=== PATIENT | male | born 1965 | race Two or more races ===

== ENCOUNTER 2021-02-02 12:27 | Outpatient (REF) | payer MEDICARE, MEDICAID, SELFPAY ==
[2021-02-02 14:00] LABS: Blood Urea Nitrogen 9 mg/dL (9-16); Estimated Glomerular Filt Rate > 60
== END 2021-02-02 12:28 | disposition home or self-care (01) ==
LOC: HO.LAB 12:27
PROVIDERS: PCP Internal Medicine; Visit Provider Internal Medicine
DX: R10.12 Left upper quadrant pain (principal)
CPT/HCPCS: 36415; 82565; 84520

== ENCOUNTER 2021-02-05 12:33 | Outpatient (REF) | payer MEDICARE, MEDICAID, SELFPAY ==
--- NOTE | ~2021-02-05 | CT_ITS ---
EXAMINATION: CT ABDOMEN WITH CONTRAST CLINICAL INFORMATION: Left upper quadrant pain COMPARISON: CT from 06/21/2009 TECHNIQUE: Contiguous axial thin section helical images of the abdomen were performed following the administration of oral contrast and 100 mL of Omnipaque 350 intravenous contrast. The data set was reformatted in the coronal and sagittal planes and reviewed on an independent workstation. This CT examination was performed using dose optimization techniques as appropriate, variously including the following: *Automated exposure control *Adjustment of mA and/or kV according to patient size (this includes techniques or standardized protocols for targeted exams where dose is matched to indication/reason for exam; i.e. extremities or head) *Use of iterative reconstruction technique DLP: 735 mGy-cm FINDINGS: LUNG BASES: The lung bases are clear. The visualized cardiac structures are unremarkable. LIVER, GALLBLADDER, AND BILIARY TREE: The liver is normal in size, shape, and attenuation. No focal hepatic lesion. Status post cholecystectomy. There is intrahepatic and extrahepatic biliary ductal dilatation noted. No ductal filling defects are seen. PANCREAS: Mild fatty atrophy of the pancreas with no focal pancreatic lesion. No pancreatic ductal dilatation. SPLEEN: Normal. ADRENAL GLANDS AND KIDNEYS: Normal appearance of the adrenal glands. Kidneys are normal in size, shape, and attenuation. Mild cortical thinning at the lower to midpole of the right kidney. No hydronephrosis or nephrolithiasis. Symmetric nephrograms bilaterally. There is symmetric excretion. There is a right lower pole 1.7 cm cyst. No suspicious renal mass. BOWEL LOOPS: The stomach is unremarkable. Normal caliber small bowel. There is no obstruction. Normal appendix is partially visualized. No colonic wall thickening or acute inflammatory change. Mild colonic stool burden. No free air or free fluid. LYMPH NODES: Normal. VASCULAR: Normal caliber aorta with mild atherosclerotic calcification. Circumaortic left renal vein. BONES: No acute or suspicious osseous abnormality. Mild degenerative changes of the spine. CT/CT abdomen w con IMPRESSION: No suspicious findings to account for patient's pain. There is a right lower pole renal cyst. Otherwise unremarkable appearance of the kidneys. Status post cholecystectomy. Nonspecific intrahepatic and extrahepatic biliary ductal dilatation. This can be seen in the postcholecystectomy state.
== END 2021-02-05 12:34 | disposition home or self-care (01) ==
LOC: HO.CT 12:33
PROVIDERS: PCP Internal Medicine; Visit Provider Internal Medicine
DX: R10.12 Left upper quadrant pain (principal)
CPT/HCPCS: 74160; Q9967

== ENCOUNTER 2021-03-06 12:26 | Emergency (ER) | payer MEDICARE, MEDICAID, SELFPAY ==
[2021-03-06 12:38] VITALS: BP 132/94; PULSE 99; RESP 18; TEMP 37; O2SAT 97; BMI 37.3
--- NOTE | 2021-03-06 15:59 | ED.ABDPAIN ---
HPI - Abdominal Pain General Chief Complaint: Abdominal Pain Stated Complaint: VOMITING DIARRHEA EAR PAIN ABD PAIN Time Seen by Provider: 03/06/21 15:13 Source: patient Mode of arrival: ambulatory Limitations: no limitations History of Present Illness HPI narrative: 55 y/o male with history of depression, anxiety, gastritis, H.pylori in the past who presents with diffuse lower abdominal pain, nausea, vomiting and diarrhea for the last 4 days after he ingested boiled octopus that he made at home. He reports the day after he ate it he had profuse vomiting and diarrhea. He denies blood in his stool or vomitus. No fever or chills. He has lower abdominal discomfort that is cramping in nature, comes and goes and is worse before BM's. He also has some discomfort/soreness when he vomits. No pain at rest. MD elicited complaint: abdominal pain and other (vomiting and diarrhea ) Onset (ago): day(s) (4) Pain Consistency: intermittent Location: RLQ and LLQ Severity: moderate Quality: cramping Radiation: none Migration to: no migration Exacerbating factors: nothing Relieving factors: nothing Associated symptoms: nausea, vomiting and diarrhea Related Data Home Medications Medication Instructions Recorded Confirmed buprenorphine 8 mg-naloxone 2 mg 10 mg SUBLINGUAL BID 01/05/21 01/05/21 sublingual film clonazepam 1 mg tablet 0 mg PO 01/05/21 01/05/21 duloxetine 30 mg capsule,delayed 30 mg PO DAILY 01/05/21 01/05/21 release hydroxyzine HCl 50 mg tablet 50 mg PO TID 01/05/21 01/05/21 temazepam 15 mg capsule 15 mg PO BEDTIME PRN 01/05/21 01/05/21 Previous Rx's Medication Instructions Recorded ondansetron 4 mg PO Q8H PRN #10 tab 03/06/21 Allergies Allergy/AdvReac Type Severity Reaction Status Date / Time No Known Allergies Allergy Verified 03/06/21 12:42 Review of Systems Review of Systems Constitutional: No Fever, No Chills Cardiovascular: No Chest Pain, No SOB Respiratory: No Cough, No Sputum Gastrointestinal: + Nausea, + Vomiting, + Diarrhea, + abdominal Pain, No Hematochezia, No Melena Genitourinary: No Dysuria, No Urinary Frequency, No Hematuria Musculoskeletal: No joint pain, No Myalgias Skin: No Skin Lesions, No rash Neuro: No Weakness, No Numbness, No Dizziness, No Headache Heme/Lymph: No Bruising, No Lymphadenopathy Endocrine: No Polyuria, No Polydipsia Physical Exam Vital Signs: Vital Signs: Last Vital Signs Temp 98.0 F 03/06/21 16:00 Pulse 77 03/06/21 16:00 Resp 18 03/06/21 12:38 BP 139/82 03/06/21 16:00 Pulse Ox 98 03/06/21 16:00 Body Mass Index 37.3 Appearance: Alert. Oriented X3. No acute distress. Eyes: Pupils equal, round and reactive to light. ENT: Pharynx normal. Neck: Normal inspection. Neck supple. CVS: Normal heart rate and rhythm. Pulses normal. Respiratory: No respiratory distress. Breath sounds normal. Abdomen: Soft with mild lower abdominal tenderness throughout to deep palpation without rebound or guarding. +BS x4 Skin: Skin warm and dry. Normal skin color. Normal skin turgor. No rashes. Extremities: No lower extremity edema. Neuro: Oriented X 3. No motor deficit. No sensory deficit. Course Course Course Narrative: 55 y/o male presenting with N/V/D for the last 4 days after eating octopus on Good Friday. No blood in stool or vomitus. Doubt bacterial infection. Likely gastroenteritis due to food bourne illness. He appears well on exam with no significant abdominal tenderness. Afebrile without tachycardia. Will get labs, hydrate and give IV zofran and reassess. Reevaluation(s) Reevaluation #1: Labs show normal WBC. He is asking for omar zenon and tolerating it well. No vomiting or diarrhea in the 5 hours the patient has been in the ER. Labs needed to be resent due to hemolysis. Giving additional IVF now and crackers. He appears well. If labs ok will plan for d/c home with zofran. MDM - Abdominal Pain Lab Data Result diagrams: 03/06/21 16:15 03/06/21 16:15 Labs: Lab Results 03/06/21 03/06/21 Range/Units 16:15 16:16 WBC 7.0 (4.8-10.8) X10*3/uL RBC 4.61 (4.60-5.80) X10*6/uL Hgb 13.3 L (14.0-18.0) g/dl Hct 39.3 L (42-52) % MCV 85.2 (80-98) fL MCH 28.9 (27.0-33.0) pg MCHC 33.8 (31.0-36.0) g/dl RDW 13.2 (11.0-16.0) % Plt Count 180 (160-400) X10*3/uL MPV 9.4 (9.4-12.4) fL Immature Gran % (Auto) 0.1 (0.0-0.4) % Neut % (Auto) 56.7 (45-73) % Lymph % (Auto) 32.8 (20-40) % Thurston % (Auto) 8.7 (2-11) % Eos % (Auto) 1.4 (0-4) % Baso % (Auto) 0.3 (0-2) % Lymph # (Auto) 2.3 (1.2-4.9) X10*3/uL Thurston # (Auto) 0.6 (0.1-1.2) X10*3/uL Eos # (Auto) 0.1 (0.0-0.4) X10*3/uL Baso # (Auto) 0.0 (0.0-0.2) X10*3/uL Abs Immat Gran (auto) 0.01 (0.00-0.03) X10*3/uL Absolute Neuts (auto) 4.0 (2.0-8.3) X10*3/uL Absolute Nucleated RBC 0.000 (0.0-0.012) X10*3/uL Nucleated RBC % (auto) 0.0 (0.0-0.2) /100WBC Coronavirus (PCR) NEGATIVE (Negative) Influenza Type A (PCR) NEGATIVE (Negative) Influenza Type B (PCR) NEGATIVE (Negative) RSV RNA Qual (PCR) NEGATIVE (Negative) Discharge Plan Discharge Clinical Impression: Gastroenteritis Patient Disposition: Home, Self-Care Instructions: Gastroenteritis (ED), Acute Nausea and Vomiting (ED) Additional Instructions: Your lab workup today was unremarkable. Rest and stay hydrated. Drink plenty of water. Stick to a bland diet while you are not feeling well. Follow up with your doctor this week. If you have recurrent persistent vomiting and diarrhea, worsening abdominal pain, fevers or blood in your stool come back to the ER for further evaluation. Prescriptions: New ondansetron 4 mg tablet,disintegrating 4 mg PO Q8H PRN (Reason: nausea and vomiting) Qty: 10 RF: 0 No Action duloxetine 30 mg capsule,delayed release(DR/EC) 30 mg PO DAILY RF: 0 temazepam 15 mg capsule 15 mg PO BEDTIME PRNRF: 0 hydroxyzine HCl 50 mg tablet 50 mg PO TID RF: 0 buprenorphine-naloxone 8-2 mg film 10 mg sublingual BID RF: 0 clonazepam 1 mg tablet 0 mg PO RF: 0 PMFSH Past Medical History Medical History History of inguinal hernia History of umbilical hernia Hx of gallstones Obesity Surgical History History of cholecystectomy History of inguinal hernia repair Family History Family History Mother Pre-diabetes Hypertension Father No problems noted. Family/Other Hypertension Social History Social History Alcohol intake: never Smoking Status: Never smoker Smoked in Last 30 Days: No Use of substances other than those prescribed or required for medical reasons: No Advance Directives: Yes Advance Directives Information Provided: Yes Advance Directives on File: No
[2021-03-06 16:00] VITALS: BP 139/82; PULSE 77; TEMP 36.7; O2SAT 98
[2021-03-06] MEDS: 0.9 % Sodium Chloride 1,000 ML 999 ML IVCONT ×2 (16:03→18:24)
[2021-03-06] MEDS: ondansetron HCL 4 MG/2 ML VIAL IVPUSH (16:03)
--- NOTE | 2021-03-06 16:09 | PC.NURSE ---
iv inserted, labs drawn, covid swab performed, pt medicated per order, vss, will continue to monitor.
[2021-03-06 16:24] LABS: MANUAL DIFF FLAG NO
[2021-03-06 16:26] LABS: Basophils Percent Auto 0.3 % (0-2); Eosinophils Absolute Auto 0.1 X10*3/uL (0.0-0.4); Eosinophils Percent Auto 1.4 % (0-4); Hematocrit 39.3 % (42-52); Hemoglobin 13.3 g/dl (14.0-18.0); Imm Gran Abs Auto 0.01 X10*3/uL (0.00-0.03); Imm Gran Pct Auto 0.1 % (0.0-0.4); Lymphocytes Absolute Auto 2.3 X10*3/uL (1.2-4.9); Lymphocytes Percent Auto 32.8 % (20-40); Mean Corpuscular HGB Conc 33.8 g/dl (31.0-36.0); Mean Corpuscular Hemoglobin 28.9 pg (27.0-33.0); Mean Corpuscular Volume 85.2 fL (80-98); Mean Platelet Volume 9.4 fL (9.4-12.4); Monocytes Absolute Auto 0.6 X10*3/uL (0.1-1.2); Monocytes Percent Auto 8.7 % (2-11); Neutrophils Percent Auto 56.7 % (45-73); Platelet Count 180 X10*3/uL (160-400); Red Blood Count 4.61 X10*6/uL (4.60-5.80); Red Cell Distribution Width 13.2 % (11.0-16.0)
[2021-03-06 17:04] LABS: Influenza A PCR NEGATIVE (Negative); Influenza B PCR NEGATIVE (Negative); Resp Syncy Virus RNA Qual PCR NEGATIVE (Negative); SARS COV2 PCR INHOUSE NEGATIVE (Negative)
[2021-03-06 18:04] LABS: Glucose Urine UA NEG (NEG); Leukocyte Esterase Urine NEG (NEG); Nitrite Urine NEG (NEG); Specific Gravity - Urine 1.015 (1.005-1.025); Urine Blood 1+ (NEG); Urine Ketones NEG (NEG); Urine Protein NEG (NEG-TRACE)
[2021-03-06 18:07] LABS: Appearance Urine CLEAR; Color Urine YELLOW
[2021-03-06 18:11] LABS: Bacteria Urine TRACE /LPF; Renal Epithelial Cells Urine TRACE /LPF; Squamous Epithelial Cell Urine TRACE /LPF; WBC Urine 0-2 /HPF (0-4)
[2021-03-06 18:24] VITALS: BP 115/75; PULSE 79; RESP 18; TEMP 36.9; O2SAT 96
--- NOTE | 2021-03-06 18:24 | PC.NURSE ---
patient a&ox3, vss, ivf started per order, pt currently watching tv, will continue to monitor.
[2021-03-06 18:26] LABS: Alanine Aminotransferase 35 U/L (0-40); Albumin Level 3.8 g/dL (3.5-5.0); Alkaline Phosphatase 148 U/L (39-117); Anion Gap 11 (12-20); Aspartate Amino Transferase 21 U/L (5-37); Bilirubin Direct 0.2 mg/dL (0.0-0.5); Bilirubin Total 0.6 mg/dL (0.0-1.0); Blood Urea Nitrogen 11 mg/dL (9-16); Calcium 8.6 mg/dL (8.4-10.2); Carbon Dioxide 25 mmol/L (22-29); Chloride 107 mmol/L (96-108); Creatinine Clr Calc Pharmacy 129.3; Estimated Glomerular Filt Rate > 60; Glucose Random 100 mg/dL (60-115); Lipase 55 U/L (8-78); Potassium 3.9 mmol/L (3.3-5.1); Sodium 139 mmol/L (135-145); Total Protein 6.7 g/dL (6.5-8.0)
== END 2021-03-06 19:55 | disposition home or self-care (01) ==
PROVIDERS: Physician Assistant; Emergency Provider Emergency Medicine; PCP Internal Medicine
DX: K52.9 Noninfective gastroenteritis and colitis, unspecified (principal); R10.30 Lower abdominal pain, unspecified; Z20.822 Contact with and (suspected) exposure to COVID-19; Z79.899 Other long term (current) drug therapy
CPT/HCPCS: 0241U; 36415; 80048; 80076; 81001; 83690; 83735; 85025; 96365; 96375; 99284; J2405

== ENCOUNTER 2021-09-12 12:30 | Emergency (ER) | payer MEDICARE, MEDICAID, SELFPAY ==
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
[2021-09-12 14:20] VITALS: BP 135/81; PULSE 80; RESP 18; TEMP 36.6; O2SAT 98; BMI 33.0
[2021-09-12] MEDS: Ibuprofen 600 MG TABLET PO (14:25)
== END 2021-09-12 14:38 | disposition home or self-care (01) ==
PROVIDERS: Emergency Provider Internal Medicine; PCP Internal Medicine
DX: S80.11XA Contusion of right lower leg, initial encounter (principal); S80.811A Abrasion, right lower leg, initial encounter; M54.50 Low back pain, unspecified; V09.20XA Pedestrian injured in traffic accident involving unspecified motor vehicles, initial encounter; Y93.55 Activity, bike riding; Y92.481 Parking lot as the place of occurrence of the external cause; Y99.9 Unspecified external cause status
CPT/HCPCS: 72100; 73590; 73610; 99283

== ENCOUNTER 2021-10-04 11:31 | Outpatient (REF) | payer MEDICARE, MEDICAID, SELFPAY ==
--- NOTE | ~2021-10-04 | XR_ITS ---
EXAMINATION: XR SHOULDER, RIGHT CLINICAL INFORMATION: Pain in shoulder. COMPARISON: None TECHNIQUE: 3 views. of the right shoulder. FINDINGS: The bones and soft tissues are normal. No fracture. Glenohumeral and acromioclavicular alignment is anatomic with normal joint space. No abnormal soft tissue calcifications. XR/XR shoulder RT min 2V IMPRESSION: Normal right shoulder.
--- NOTE | ~2021-10-04 | XR_ITS ---
EXAMINATION: XR CERVICAL SPINE CLINICAL INFORMATION: Cervicalgia COMPARISON: CT neck October 18, 2019. Cervical spine September 27, 2012 .MR cervical spine October 24, 2012 TECHNIQUE: 4 views of the cervical spine were obtained. FINDINGS: The cervical vertebrae have normal height and alignment. No fracture or bone destruction. There is minor degenerative lipping at the vertebral endplates of the C4, C5 and C6 vertebrae. There is mild cervical disc height narrowing at C5-C6. The facet joints are normal. XR/XR cervical spine 2V IMPRESSION: 1. No acute abnormality. 2. Mild degenerative spondylosis of cervical spine.
--- NOTE | ~2021-10-04 | XR_ITS ---
EXAMINATION: XR LUMBOSACRAL SPINE CLINICAL INFORMATION: Dorsalgia, COMPARISON: Lumbar spine September 12, 2021 TECHNIQUE: Three views of the lumbosacral spine. FINDINGS:. There is normal variant of a partial transitional L5 vertebrae. The left L5 transverse process articulates with the sacrum. There is normal variant of Spina bifida occulta is S1 Lumbar vertebrae have normal height and alignment. No fracture or bone destruction. Mild degenerative lipping at the anterior endplates of lower thoracic vertebra and the lumbar vertebrae. Mild facet joint arthrosis at lumbosacral junction Sacroiliac joints are normal. Minimal retrolisthesis of L4 on L5 again noted. Surgical coils seen over the midabdomen from anterior abdominal wall mesh. Surgical clips right upper quadrant of abdomen from prior cholecystectomy. Compared to the prior study there is been no substantial change. XR/XR lumbar spine 2-3V IMPRESSION: No acute abnormality. Mild degenerative change of the lumbar spine.
== END 2021-10-04 11:32 | disposition home or self-care (01) ==
LOC: HO.XRAY 11:31
PROVIDERS: PCP Internal Medicine; Visit Provider Internal Medicine
DX: M54.9 Dorsalgia, unspecified (principal); M54.2 Cervicalgia; M25.511 Pain in right shoulder
CPT/HCPCS: 72040; 72100; 73030

== ENCOUNTER 2024-07-20 10:30 | Outpatient (AMB) | payer MEDICARE, MEDICAID, SELFPAY ==
[2024-07-20 10:35] VITALS: BP 142/86; PULSE 77; O2SAT 99; BMI 34.9
--- NOTE | 2024-07-20 10:35 | A.OFFVIS_ITS ---
Intake Vital Signs 07/20/24 10:35 Height 5 ft 10 in Weight 243 lb BMI 34.9 BP 142/86 H Blood Pressure Location Lt brachial Position Sitting Pulse 77 Pulse Source Pulse Oximeter Pulse Oximetry (%) 99 Oxygen Delivery Method Room Air Intake Visit Reasons: AWV Allergies No Known Allergies Allergy (Verified 07/20/24 10:35) HPI AWV HPI Details substance abuse currently off suboxone and doing well without abuse; all AWV forms given to patient [facility] Medical History (Updated 07/21/24 @ 12:38 by Ji Iqbal MD) Obesity Obesity Hx of gallstones History of inguinal hernia History of umbilical hernia Surgical History (System 10/03/21 @ 15:20 by Carole Christian) History of inguinal hernia repair History of cholecystectomy Family History (System 10/03/21 @ 15:20 by Carole Christian) Mother Pre-diabetes Hypertension Father No problems noted. Family/Other Hypertension Social History (System 10/03/21 @ 15:20 by Carole Christian) Housing: Apartment Alcohol intake: never Patient Tobacco Use Status: Former Tobacco user Tobacco use type: Cigarette e-Cigarette/Vaping Use: Never Used Second Hand Smoke Exposure: No service: No Current occupational status: employed and disabled Current occupational exposures/hazards: No Cognitive needs: No Hearing needs: No Vision needs: No Questionnaire Medicare Wellness Checkup What gender do you identify with?: male During the past 4 weeks, how much have you been bothered by emotional problems such as feeling anxious, depressed, irritable, sad or downhearted, and blue?: slightly During the past 4 weeks, has your physical & emotional health limited your social activities with family, friends, neighbors, or groups?: slightly During the past 4 weeks, how much bodily pain have you generally had?: moderate pain During the past 4 weeks, was someone available to help you if you needed & wanted help?: yes, quite a bit During the past 4 weeks, what was the hardest physical activity you could do for at least 2 minutes?: moderate Can you get to places out of walking distance without help? (For eg., can you travel alone on buses, taxis or drive your car?): Yes Can you go shopping for groceries or clothes without someone's help?: Yes Can you prepare your own meals?: No Can you do your housework without help?: Yes Because of any health problems, do you need the help of another person with your personal care needs such as eating, bathing, dressing or getting around the house?: No Can you handle your own money without help?: Yes During the past 4 weeks, how would you rate your health in general?: good During the past 4 weeks how have things been going for you?: good & bad parts about equal Are you having difficulties driving your car?: no Do you always fasten your seat belt when you are in a car?: yes, sometimes During past 4 weeks, have you been bothered by the following: never: Falling or dizzy when standing up, Sexual problems?, Trouble eating well?, Teeth or denture problems?, Problems using the telephone? and Tiredness or fatigue? Have you fallen 2 or more times in the past year?: No Are you afraid of falling?: Yes Are you a smoker?: yes, and I might quit During the past 4 weeks, how many drinks of wine, beer, or other alcoholic beverages did you have?: 10 or more per week Do you exercise for about 20 minutes 3 or more times a week?: yes, some of the time Have you been given information to help with the following?: yes: Hazards in your house that might hurt you? How often do you have trouble taking medicines the way you have been told to take them?: I do not have to take medicine How confident are you that you can control & manage most of your health problems?: very confident What is your race?: or origin or descent Mini Mental State Exam (MMSE) Orientation What is the (year) (season) (date) (day) (month)?: year, season, date, day and month Where are we (state) (county) (town or city) (hospital) (floor)?: state, county, town or city, hospital/clinic and floor Registration Name of 3 unrelated objects clearly and slowly, then ask patient to repeat all 3 of them. (1st repeat determines score. Make sure they can repeat all three): object 1, object 2 and object 3 Attention & Calculation (CHOOSE ONE) Spell WORLD backwards (DLROW): 2 letters Recall Ask patient to repeat the 3 items from question #3.: object 1 Score Score: 16 Activity of Daily Living Bathing - sponge bath, tub bath or shower: receives no assistance (gets in/out by self, if usual bathing means Dressing - getting clothes from closets & drawers, including inner/outer garments & fasteners.: gets clothes & gets completely dressed without help Toileting - going to the 'toilet room' for urine/bowel elimination & cleaning self/arranging clothes: goes to toilet room, cleans self, arranges clothes without help Transfer: moves in & out of bed and chair without help (may use support object) Continence: controls urination/bowel movements completely by self Feeding: feeds self without help Total Score: 0 Information obtained from: patient Using telephone: independent Traveling: independent Shopping: independent Preparing meals: independent Housework: independent Taking medicine: independent Managing money: independent PHQ-9 Over the last 2 weeks, how often have you been bothered by any of the following problems? 1. Little interest or pleasure in doing things: not at all 2. Feeling down, depressed, or hopeless: not at all 3. Trouble falling or staying asleep, or sleeping too much: not at all 4. Feeling tired or having little energy: not at all 5. Poor appetite or overeating: not at all 6. Feeling bad about yourself - or that you are a failure or have let yourself or your family down: not at all 7. Trouble concentrating on things, such as reading the newspaper or watching television: not at all 8. Moving or speaking so slowly that other people could have noticed. Or the opposite - being so fidgety or restless that you have been moving around a lot more than usual: not at all 9. Thoughts that you would be better off or of hurting yourself in some way: not at all Total score: 0 Depression Screening Interpretation: Negative Depression Screening Done: Yes 32846 - PHQ-9 Billing: Yes Source: Developed by Drs. Kemal Reed, Nancy Spicer, Addison Hallman and colleagues, with an educational dennys from [employer]. Review of Systems Const Denies chills, Denies fatigue, Denies headache(s) and Denies weight loss Eyes Denies change in vision, Denies diplopia and Denies eye pain ENT Reports Normal hearing present, Denies vertigo, Denies dizziness, Denies headache(s) and Denies nasal discharge Card Denies chest pain, Denies rapid heart rate and Denies dyspnea on exertion Resp Denies chest congestion, Denies cough, Denies pain with cough and Denies dyspnea on exertion GI Denies abdominal pain, Denies hematochezia and Denies change in bowel habits Musc Denies myalgias, Denies arthralgias and Denies joint swelling Skin/Breast Denies lesions and Denies unusual bruising Neuro Reports Normal hearing present, Denies vertigo, Denies dizziness, Denies headache(s) and Denies focal weakness Endo Denies fatigue Physical Exam Vital Signs: Last Vital Signs Pulse 77 07/20/24 10:35 BP 142/86 H 07/20/24 10:35 Pulse Ox 99 07/20/24 10:35 Oxygen Delivery Method Room Air 07/20/24 10:35 BMI result Body Mass Index 34.9 Neuro Cranial nerves: Yes Normal hearing present Assessment & Plan Assessment & Plan (1) Encounter for initial annual wellness visit (AWV) in Medicare patient: Code(s): Z00.00 - Encounter for general adult medical examination without abnormal findings Plan: rhomberg and whisper tests normal Orders: Orders Lipid Panel 07/20/24 Z13.220 - Encounter for screening for lipoid disorders Complete Blood Count Auto Diff 07/20/24 Z13.0 - Encounter for screening for diseases of the blood and blood-forming organs and certain disorders involving the immune mechanism Comprehensive Aroda. Panel Fast 07/20/24 Z13.9 - Encounter for screening, unspecified Thyroid Stimulating Hormone 07/20/24 Z13.29 - Encounter for screening for other suspected endocrine disorder Referrals Ear/Nose/Throat Referral H61.20 - Impacted cerumen, unspecified ear Quality Reporting (2019) Depression/Bipolar (159/160/161/177) PHQ-9: Total score: 0 Coding Level of Care Code Medicare First (G0438) Diagnoses Encounter for initial annual wellness visit (AWV) in Medicare patient Z00.00 Advance Care Planning Advance Care Planning discussion: Declined forms
== END 2024-07-20 10:55 | disposition home or self-care (01) ==
PROVIDERS: PCP Internal Medicine; Visit Provider Internal Medicine
DX: Z00.00 Encounter for general adult medical examination without abnormal findings (principal)
CPT/HCPCS: G0438

== ENCOUNTER 2024-08-10 08:27 | Outpatient (REF) | payer MEDICARE, MEDICAID, SELFPAY ==
[2024-08-10 08:40] LABS: MANUAL DIFF FLAG NO
[2024-08-10 09:26] LABS: Basophils Percent Auto 0.6 % (0-2); Eosinophils Absolute Auto 0.1 X10*3/uL (0.0-0.4); Eosinophils Percent Auto 2.1 % (0-4); Imm Gran Abs Auto 0.02 X10*3/uL (0.00-0.03); Imm Gran Pct Auto 0.3 % (0.0-0.4); Lymphocytes Absolute Auto 2.2 X10*3/uL (1.2-4.9); Lymphocytes Percent Auto 34.7 % (20-40); Mean Corpuscular Hemoglobin 30.2 pg (27.0-33.0); Mean Corpuscular Volume 86.2 fL (80.0-98.0); Mean Platelet Volume 9.5 fL (9.4-12.4); Monocytes Absolute Auto 0.4 X10*3/uL (0.1-1.2); Monocytes Percent Auto 6.5 % (2-11); Neutrophils Absolute Auto 3.5 x10*3/uL (2.0-8.3); Neutrophils Percent Auto 55.8 % (45-73); Platelet Count 184 X10*3/uL (160-400); Red Blood Count 4.64 X10*6/uL (4.60-5.80); Red Cell Distribution Width 12.9 % (11.0-16.0); White Blood Count 6.2 X10*3/uL (4.8-10.8)
[2024-08-10 10:37] LABS: Alanine Aminotransferase 18 U/L (0-40); Alkaline Phosphatase 90 U/L (39-117); Anion Gap 13 (12-20); Aspartate Amino Transferase 17 U/L (5-37); Bilirubin Total 0.5 mg/dL (0.0-1.0); Blood Urea Nitrogen 14 mg/dL (9-16); Calcium 9.4 mg/dL (8.4-10.2); Carbon Dioxide 24 mmol/L (22-29); Chloride 107 mmol/L (96-108); Cholesterol 208 mg/dL (<200); Estimated Glomerular Filt Rate > 60; Glucose Fasting 99 mg/dL (60-99); HDL Cholesterol 44 mg/dL (>40); LDL Cholesterol Calculated 144 mg/dL (<100); Sodium 140 mmol/L (135-145); Total Protein 7.2 g/dL (6.5-8.0); Triglycerides 104 mg/dL (<150)
[2024-08-10 10:44] LABS: Thyroid Stimulating Hormone 1.24 uIU/mL (0.32-4.0)
== END 2024-08-10 08:28 | disposition home or self-care (01) ==
LOC: HO.LAB 08:27
PROVIDERS: PCP Internal Medicine; Visit Provider Internal Medicine
DX: Z13.0 Encounter for screening for diseases of the blood and blood-forming organs and certain disorders involving the immune mechanism (principal); Z13.220 Encounter for screening for lipoid disorders; Z13.9 Encounter for screening, unspecified; Z13.29 Encounter for screening for other suspected endocrine disorder
CPT/HCPCS: 36415; 80053; 80061; 84443; 85025

== ENCOUNTER 2024-08-11 11:29 | Outpatient (AMB) | payer MEDICARE, MEDICAID, SELFPAY ==
[2024-08-11 11:33] VITALS: BP 146/88; PULSE 84; O2SAT 96; BMI 34.9
--- NOTE | 2024-08-11 11:33 | A.OFFPC_ITS ---
Vital Signs 08/11/24 11:33 Height 5 ft 10 in Weight 243 lb BMI 34.9 BP 146/88 H Blood Pressure Location Lt brachial Position Sitting Pulse 84 Pulse Source Pulse Oximeter Pulse Oximetry (%) 96 Oxygen Delivery Method Room Air Intake Visit Reasons: Lab Results Dinkey Operator Slate Required: No Accompanied by: Self / Same As Patient Allergies No Known Allergies Allergy (Verified 08/11/24 11:33) Tobacco use date assessed: 08/11/24 Dental Screening Dental Screen Date: 08/11/24 Did you have a dental visit in the last 12 months?: Yes Did you have a dental problem in the last 6 months where you did not have access to dental care?: No Was dental information given to patient?: Patient has dentist HPI Lab Results HPI Details f/u fatigue; all labs normal [facility] Medical History (Updated 08/11/24 @ 13:17 by Ji Iqbal MD) Obesity Obesity Hx of gallstones History of inguinal hernia History of umbilical hernia Surgical History (System 10/03/21 @ 15:20 by Carole Christian) History of inguinal hernia repair History of cholecystectomy Family History (System 10/03/21 @ 15:20 by Carole Christian) Mother Pre-diabetes Hypertension Father No problems noted. Family/Other Hypertension Social History (System 10/03/21 @ 15:20 by Carole Christian) Housing: Apartment Alcohol intake: never Patient Tobacco Use Status: Former Tobacco user Tobacco use type: Cigarette e-Cigarette/Vaping Use: Never Used Second Hand Smoke Exposure: No service: No Current occupational status: employed and disabled Current occupational exposures/hazards: No Cognitive needs: No Hearing needs: No Vision needs: No Questionnaire PHQ-9 Over the last 2 weeks, how often have you been bothered by any of the following problems? 1. Little interest or pleasure in doing things: not at all 2. Feeling down, depressed, or hopeless: not at all 3. Trouble falling or staying asleep, or sleeping too much: not at all 4. Feeling tired or having little energy: not at all 5. Poor appetite or overeating: not at all 6. Feeling bad about yourself - or that you are a failure or have let yourself or your family down: not at all 7. Trouble concentrating on things, such as reading the newspaper or watching television: not at all 8. Moving or speaking so slowly that other people could have noticed. Or the opposite - being so fidgety or restless that you have been moving around a lot more than usual: not at all 9. Thoughts that you would be better off or of hurting yourself in some way: not at all Total score: 0 Depression Screening Interpretation: Negative Depression Screening Done: Yes 19145 - PHQ-9 Billing: Yes Source: Developed by Drs. Kemal Reed, Nancy Spicer, Addison Hallman and colleagues, with an educational dennys from [employer]. Thrive Questionnaire Date Thrive assessed: 08/11/24 I am a: Patient What is your living situation today?: I have a steady place to live Within the past 12 months, did the food you bought not last and you didn't have the money to get more?: Never true Within the past 12 months, did you worry whether your food would run out before you got money to buy more?: Never true THRIVE Score: 0 AUDIT C Alcohol Use Questionnaire (AUDIT-C) 1. How often do you have a drink containing alcohol?: Never Total Score: 0 Score Reviewed/Action Taken: Yes NAHUN-7 AMB Questionnaire NAHUN-7 Date NAHUN - 7 assessed: 08/11/24 Feeling nervous, anxious, or on edge: 0 = Not at all Not being able to stop or control worryin = Not at all Worrying too much about different things: 0 = Not at all Trouble relaxin = Not at all Being so restless that it is hard to sit still: 0 = Not at all Becoming easily annoyed or irritable: 0 = Not at all Feeling afraid as if something awful might happen: 0 = Not at all Total NAHUN-7 score (0-4 normal; 5-9 mild; 10-14 moderate; 15-21 severe): 0 Source: Developed by Drs. Kemal Reed, Nancy Spicer, Addison Hallman and colleagues, with an educational dennys from [employer]. NAHUN-7 Assessment Billing NAHUN-7 Assessment Tool: NAHUN-7 Assessment 13027 Review of Systems Const Denies chills, Denies headache(s) and Denies weight loss ENT Denies headache(s) Card Denies chest pain, Denies syncope, Denies irregular heart rhythm and Denies dyspnea Resp Denies chest congestion, Denies cough and Denies dyspnea GI Denies abdominal pain, Denies change in stool character, Denies nausea and Denies vomiting Musc Denies deformity and Denies joint swelling Neuro Denies syncope and Denies headache(s) Physical exam (Primary Care) Vital Signs: Last Vital Signs Pulse 84 08/11/24 11:33 BP 146/88 H 08/11/24 11:33 Pulse Ox 96 08/11/24 11:33 Oxygen Delivery Method Room Air 08/11/24 11:33 BMI result Body Mass Index 34.9 Tobacco/Smoking Status: Tobacco use Status Tobacco use date assessed 08/11/24 08/11/24 11:34 Patient Tobacco Use Status Former Tobacco user 08/11/24 11:34 Tobacco use type Cigarette 08/11/24 11:34 e-Cigarette/Vaping Use Never Used 08/11/24 11:34 PHQ-9: PHQ-9 Score PHQ-9: Total score 0 08/11/24 11:44 Depression Screening Interpretation: Negative Thrive Assessment: Date of Thrive Assessment Date Thrive assessed 08/11/24 08/11/24 11:34 Const General: cooperative, comfortable, no acute distress and alert Neck Neck: Yes no lymphadenopathy Thyroid: Thyroid normal Resp Effort & Inspection: normal respiratory effort Auscultation: clear to auscultation bilaterally Percussion: percussion normal Cardio Jugular venous distension: no JVD Palpation: normal PMI Rate: regular rate Rhythm: regular rhythm Heart sounds: S1 normal heart sound present and S2 normal heart sound present GI Inspection: Yes normal to inspection Palpation (GI): No hepatosplenomegaly present Skin General skin exam: no rashes or lesions noted Extrem General: Yes no clubbing, cyanosis or edema Assessment and Plan Assessment & Plan (1) Fatigue: Code(s): R53.83 - Other fatigue Plan: recommend exercise stop smoking lose weight Coding Level of Care Code Est Pt Level 3 (96864) Diagnoses Fatigue R53.83 Additional Codes NAHUN-7 Assessment Billing - NAHUN-7 Assessment Tool: NAHUN-7 Assessment 25039 ([id number])
== END 2024-08-11 11:50 | disposition home or self-care (01) ==
PROVIDERS: PCP Internal Medicine; Visit Provider Internal Medicine
DX: R53.83 Other fatigue (principal)
CPT/HCPCS: 99213

== ENCOUNTER 2025-08-09 19:02 | Emergency (ER) | payer MEDICARE, MEDICAID, SELFPAY ==
[2025-08-09 20:58] VITALS: BP 157/97; PULSE 95; RESP 16; TEMP 36.8; O2SAT 98; BMI 34.2
[2025-08-09 22:42] LABS: IDNOW Serial# 6674DD1D; Strep A Nucleic Acid Negative (Negative)
--- NOTE | 2025-08-10 00:05 | ED.GENADULT ---
HPI - General Adult General Chief complaint: General Medical Stated complaint: sore throat, ?infection Time Seen by Provider: 08/09/25 23:33 History of Present Illness HPI narrative: Patient is a 60-year-old male presents today with having sore throat ongoing for the last 2 weeks. Able to tolerate p.o. with pain. No vomiting no diaphoresis. Patient is from home. No shortness of breath. No change in voice. Related Data Home Medications ?Medication ?Instructions ?Recorded ?Confirmed No Known Home Meds 08/11/24 08/11/24 Allergies Allergy/AdvReac Type Severity Reaction Status Date / Time No Known Allergies Allergy Verified 08/09/25 21:00 Review of Systems Review of Systems: Positive sore throat Yes all other systems are reviewed and are negative PMFSH Past Medical History Attestation statement: The following information was validated with the patient. Medical History Obesity Obesity Hx of gallstones History of inguinal hernia History of umbilical hernia Surgical History History of inguinal hernia repair History of cholecystectomy Family History Family History Mother Pre-diabetes Hypertension Father No problems noted. Family/Other Hypertension Social History Social History Housing: Apartment Alcohol intake: never Patient Tobacco Use Status: Former Tobacco user Tobacco use type: Cigarette e-Cigarette/Vaping Use: Never Used Second Hand Smoke Exposure: No Advance Directives: No Advance Directives Information Provided: No service: No Current occupational status: employed and disabled Current occupational exposures/hazards: No Cognitive needs: No Hearing needs: No Vision needs: No Physical Exam ED Exam Exam: Appearance: Alert. Oriented X3. No acute distress. Eyes: Pupils equal, round and reactive to light. ENT: Pharynx normal. Neck: Normal inspection. Neck supple. No lymph nodes noted. No crepitus CVS: Normal heart rate and rhythm. Pulses normal. Normal S1 and S2 Respiratory: No respiratory distress. Breath sounds normal. No Wheezing. No rales Abdomen: Soft and nontender. No rigidity. No distention. good BS x4 Skin: Skin warm and dry. Normal skin color. Normal skin turgor. Extremities: No lower extremity edema. Neurovascular intact to all extremities. No Lacerations. No Rash Neuro: Oriented X 3. No motor deficit. No sensory deficit. Moving all extermities. No slurred speech Vital Signs: Vital Signs - 24 hr 08/09/25 20:58 Temperature 98.2 F Pulse Rate 95 Respiratory Rate 16 Blood Pressure 157/97 H Pulse Oximetry 98 BMI result Body Mass Index 34.2 Medical Decision Making Medical Decision Making [facility] Narrative: Well-appearing no acute distress. Rapid strep was negative. TMs are intact no erythema. More likely viral in origin. Will discharge patient home Motrin for pain follow-up on an outpatient basis no difficulty breathing. Normal voice. In no distress Differential Diagnosis Differential Diagnoses: The differential diagnosis associated with the presentation includes Pharyngitis versus peritonsillar abscess versus rapid strep Admission/Observation Consideration of admission/observation: Escalation of care including admission/observation considered Lab Data [facility] Lab Attestation statement: I reviewed the patient's lab results. Labs: Lab Results 08/09/25 Range/Units 22:28 S. pyogenes GrpA YANICK Negative (Negative) Prescription Management I considered prescription management with: Antibiotic Social Determinants Patient?s care significantly limited by Social Determinants of Health including: Problems related to primary support group Discharge Plan Discharge Clinical Impression: Acute pharyngitis Patient Disposition: Home, Self-Care Instructions: Pharyngitis (ED) Prescriptions: No Action No Known Home Meds Referrals: Ji Iqbal MD [Primary Care Provider, Internal Medicine] - 08/12/25 Print Language: American
== END 2025-08-10 00:41 | disposition home or self-care (01) ==
PROVIDERS: Emergency Provider Emergency Medicine Emergency Medical Services; PCP Internal Medicine
DX: J02.9 Acute pharyngitis, unspecified (principal)
CPT/HCPCS: 87651; 99281; 99283